=== PATIENT | male | born 1985 | race Caucasian/White ===

== ENCOUNTER 2021-04-30 06:41 | Emergency (ER) | payer BC, OTHER ==
[~2021-04-30] VITALS: Ht 177.8 cm; Wt 74.4 kg
[2021-04-30 06:45] VITALS: BP 140/85
--- NOTE | 2021-04-30 06:49 | NUR ---
PT TAKEN TO BED 9
--- NOTE | 2021-04-30 06:53 | NUR ---
35 Y/O MALE PATIENT CAME TO THE ED C/O NOSE PAIN. PER PT, "I FELL THE STAIRS I WAS DRESSING UP, I TRIPPED ON ONE OF MY KIDS' TOYS, AND HIT MY FACE TO THE GROUND. MY NOSE WAS ACTUALLY CROOKED, WHEN I FELL. PAIN IS AT 4/10." PT'S NOSE IS BRUISED AND SWOLLEN. PMH: DENIES NKA
--- NOTE | 2021-04-30 06:57 | NUR ---
Dr. Corral examining patient.
--- NOTE | 2021-04-30 07:16 | NUR ---
GIVEN REPORT TO MARIELA NELSON FOR CONTINUITY OF CARE
--- NOTE | 2021-04-30 07:16 | NUR ---
pt taken to xr via w/c
--- NOTE | 2021-04-30 07:17 | NUR ---
REPORT RECEIVED FROM JONATHON NELSON, TRANSFER OF CARE AT THIS TIME.
--- NOTE | 2021-04-30 07:18 | NUR ---
PT TAKEN TO RAD VIA W/C
--- NOTE | 2021-04-30 07:27 | NUR ---
PT BACK FROM RAD. PT A/O X4 GCS 15, EVEN AND UNLABORED RESPIRATIONS.
[2021-04-30 08:01] VITALS: BP 140/85
--- NOTE | 2021-04-30 08:02 | NUR ---
Patient discharged with v/s stable. Written and verbal after care instructions given and explained. Patient verbalized understanding. Ambulatory with steady gait. All questions addressed prior to discharge. Advised to follow up with PMD.
== END 2021-04-30 08:02 | disposition home or self-care (01) ==
LOC: MED 06:41
DX: R04.0 Epistaxis (principal); F17.200 Nicotine dependence, unspecified, uncomplicated; F12.90 Cannabis use, unspecified, uncomplicated; Z90.49 Acquired absence of other specified parts of digestive tract; W18.09XA Striking against other object with subsequent fall, initial encounter; Y93.89 Activity, other specified; Y92.89 Other specified places as the place of occurrence of the external cause; Y99.8 Other external cause status
CPT/HCPCS: 70160; 99283

== ENCOUNTER 2022-05-04 01:46 | Emergency (ER) | payer BC, OTHER ==
[~2022-05-04] VITALS: Ht 177.8 cm; Wt 74.8 kg
[2022-05-04 01:52] VITALS: BP 131/76
--- NOTE | 2022-05-04 01:58 | NUR ---
Patient ambulated to bed 7.
--- NOTE | 2022-05-04 02:26 | NUR ---
Dr. Negron examining patient.
--- NOTE | 2022-05-04 02:27 | NUR ---
36YR OLD MALE BIB SELF C/O L WRIST PAIN S/P INJURY . PT STATES WAS PUSHING A BED AND INJURED L WRIST A HOUR AGO. 11/21 PAIN. GOOD CAP REFILL. GOOD ROM . DR ESPINOSA AT BEDSIDE. NKDA NO MED HX TO NOTE
[2022-05-04 02:37] VITALS: BP 131/76
--- NOTE | 2022-05-04 02:37 | NUR ---
Chart checked and completed.
== END 2022-05-04 02:37 | disposition home or self-care (01) ==
LOC: MED 01:46
DX: S60.212A Contusion of left wrist, initial encounter (principal); W22.8XXA Striking against or struck by other objects, initial encounter; Y93.89 Activity, other specified; Y92.89 Other specified places as the place of occurrence of the external cause; Y99.8 Other external cause status
CPT/HCPCS: 99282